=== PATIENT | male | born 1975 | race Caucasian/White ===

== ENCOUNTER 2018-01-17 07:03 | Inpatient (IN) ==
[2018-01-17 07:47] LABS: Baso % (Auto) 0.3 % (0.0-2.0); Eos # (Auto) 0.3 th/mm3 (0.0-0.4); Hematocrit 45.7 % (39.0-51.0); Lymph # (Auto) 5.5 th/mm3 (1.0-4.8); Lymph % (Auto) 56.6 % (9.0-44.0); Mean Corpuscular HGB Conc 35.1 % (32.0-36.0); Mean Corpuscular Volume 91.4 fL (80.0-100.0); Mean Platelet Volume 7.6 fL (7.0-11.0); Mono # (Auto) 0.5 th/mm3 (0.0-0.9); Mono % (Auto) 5.6 % (0.0-8.0); Neut # (Auto) 3.4 th/mm3 (1.8-7.7); Neut % (Auto) 34.5 % (16.0-70.0); Platelet Count 181 th/mm3 (150-450); Red Blood Count 5.01 mil/mm3 (4.50-5.90); Red Cell Distribution Width 14.4 % (11.6-17.2); White Blood Count 9.7 th/mm3 (4.0-11.0)
--- NOTE | 2018-01-17 07:57 | ED ---
HPI General Chief Complaint: Psychiatric Symptoms Stated Complaint: pSYCH SCREEN/[facility] Time Seen by Provider: 01/17/18 07:39 Source: patient Mode of arrival: ambulatory Limitations: no limitations History of Present Illness HPI Narrative: 42-year-old male presents to the emergency department under Giron act. According to the Giron act report the patient was contacted inside his residence after please were contacted in reference to a well-being check on the patient. The patient was persuaded to come to [place] to be evaluated. The patient had made statements to his brother in reference to taking his life after he was abusing alcohol during the night. Patient is currently taking Prozac for depression and mood disorders. A loaded firearm was found in the subject's room and the firearm was taken to the [facility] for safe keeping. On my examination the patient states he does have thoughts of suicide at times. He did have a gun in his house last night and had thoughts of shooting himself in the head. Said he has been struggling from depression for many years and lately his depression has been bad. He is compliant with taking Prozac for his depression. He also admits to drinking alcohol daily for the past 7 days and has episodes of binge drinking for the past 10 years or so. He denies history of suicidal attempts. Denies homicidal ideations. Smokes marijuana occasionally. Otherwise denies other illicit drug use. Denies auditory visual hallucinations. Reports tobacco use. Says he feels short of breath at times and this is been going on for the last 5 years, and says he thinks is because he smokes cigarettes. He denies any associated chest pain. Denies cough, hemoptysis, wheezing. Denies hormone replacement therapy, history of DVT/PE, anticoagulant therapy, leg edema, recent travel or surgery. denies fevers, abdominal pain, vomiting, change in urine or stool. Symptoms aggravated by depression and alcohol intoxication. No known relieving factors. Symptoms are moderate to severe in severity. Is being treated with Prozac. Onset unknown. Duration most likely chronic. Does not have a psychiatrist. Denies other psychiatric history. Has a primary care provider but does not know the name. Allergies to penicillin. Has no other medical complaints. No other modifying factors or associated signs and symptoms. Related Data Previous Rx's Medication Instructions Recorded venlafaxine [Effexor XR] 37.5 mg PO DAILY #30 cap 01/20/18 Allergies Allergy/AdvReac Type Severity Reaction Status Date / Time penicillin G Allergy Rash Verified 01/17/18 07:17 Review of Systems ROS: all other systems reviewed are negative [facility] Medical History Medical History Depression (Acute) Social History Social History Substance History: No History of Abuse Second Hand Smoke Exposure: Yes Smoking Status: Current every day smoker Tobacco Type: Cigarettes How Often Do You Have a Drink Containing Alcohol: 4 or more times a week Recent Travel in [facility] within the Last 8 Weeks: No Recent Out of Country Travel within the Last 8 Weeks: No Immunization History Tetanus Immunization: Unsure Exam Narrative Exam Narrative: GENERAL: Well-nourished, well-developed male patient, in no acute distress SKIN: Warm and dry. HEAD: Atraumatic. Normocephalic. EYES: Pupils equal and round. ENT: Mucosa pink and moist. NECK: Supple. Trachea midline. CARDIOVASCULAR: Regular rate and rhythm. No murmur appreciated. RESPIRATORY: No accessory muscle use. Clear to auscultation. Breath sounds equal bilaterally. GASTROINTESTINAL: Abdomen soft, non-tender, nondistended. Hepatic and splenic margins not palpable. Bowel sounds are active 4 quadrants. MUSCULOSKELETAL: No obvious deformities. No clubbing. No cyanosis. No edema. NEUROLOGICAL: Awake and alert. Oriented 3. No obvious cranial nerve deficits. Motor grossly within normal limits. Normal speech. Moves all extremities. 5/5 strength to all extremities. PSYCHIATRIC: No delusional thought processes. No hallucinations. Course Initial Documented Vital Signs Temperature 98.6 F 01/17/18 07:21 Pulse Rate 89 01/17/18 07:21 Respiratory Rate 16 01/17/18 07:21 Blood Pressure 145/87 H 01/17/18 07:21 Pulse Oximetry 98 01/17/18 07:21 Last Documented Vital Signs Temperature 98.1 F 01/20/18 05:15 Pulse Rate 80 01/20/18 05:15 Respiratory Rate 16 01/20/18 05:15 Blood Pressure 152/88 H 01/20/18 05:15 Pulse Oximetry 97 01/20/18 05:15 Medical Decision Making [facility] Narrative Medical decision making narrative: Patient presents under a Giron act. Physical examination and vital signs are essentially unremarkable. Patient has no medical complaints to report. Psych screen has been ordered. If the laboratory results are unremarkable, the patient will be medically cleared for psychiatric evaluation and disposition. PERC Negative: No need for further workup, as <2% chance of PE. Chest x-ray negative for acute process. I discussed the patient with Dr. Nye and plan of care discussed and he agrees no further workup is necessary and patient can follow-up outpatient in regards to shortness of breath x 5 years. Medical Screen Exam Complete: Yes Emergency Medical Condition: Yes Differential Diagnosis Differential Diagnosis: Suicidal threat, suicidal ideation, alcohol induced mood disorder, depression, medical clearance for psychiatric evaluation Lab Data Result diagrams: 01/17/18 07:23 01/18/18 08:15 Lab Results 01/17/18 01/17/18 01/17/18 Range/Units 07:23 07:23 07:23 WBC 9.7 (4.0-11.0) th/mm3 RBC 5.01 (4.50-5.90) mil/mm3 Hgb 16.0 (13.0-17.0) gm/dL Hct 45.7 (39.0-51.0) % MCV 91.4 (80.0-100.0) fL MCH 32.0 (27.0-34.0) pg MCHC 35.1 (32.0-36.0) % RDW 14.4 (11.6-17.2) % Plt Count 181 (150-450) th/mm3 MPV 7.6 (7.0-11.0) fL Prelim Diff (Auto) Slide review pending Neut % (Auto) 34.5 (16.0-70.0) % Lymph % (Auto) 56.6 H (9.0-44.0) % Coleman % (Auto) 5.6 (0.0-8.0) % Eos % (Auto) 3.0 (0.0-4.0) % Baso % (Auto) 0.3 (0.0-2.0) % Neut # (Auto) 3.4 (1.8-7.7) th/mm3 Lymph # (Auto) 5.5 H (1.0-4.8) th/mm3 Coleman # (Auto) 0.5 (0.0-0.9) th/mm3 Eos # (Auto) 0.3 (0.0-0.4) th/mm3 Baso # (Auto) 0.0 (0.0-0.2) th/mm3 WBC Differential Manual diff final Seg Neuts % (Manual) 26 (16-70) % Band Neuts % (Manual) 1 (0-6) % Lymphocytes % (Manual) 67 H (9-44) % Monocytes % (Manual) 4 (0-8) % Eosinophils % (Manual) 2 (0-4) % Abs Neuts (Manual) 2.6 (1.8-7.7) th/mm3 Differential Comment . Platelet Estimate Normal (Normal) Platelet Morphology Normal (Normal) Sodium 144 (136-145) meq/L Potassium 3.8 (3.5-5.1) meq/L Chloride 108 H (98-107) meq/L Carbon Dioxide 27.8 (21.0-32.0) meq/L Anion Gap 8 (5-15) meq/L BUN 4 L (7-18) mg/dL Creatinine 1.29 (0.60-1.30) mg/dL Estimated GFR 61 L (>89) mL/min Random Glucose 107 H (74-106) mg/dL Hemoglobin A1c (4.3-6.0) % Calcium 7.9 L (8.5-10.1) mg/dL Magnesium 2.0 (1.5-2.5) mg/dL Total Bilirubin 0.4 (0.2-1.0) mg/dL AST 45 H (15-37) U/L ALT 52 (12-78) U/L Alkaline Phosphatase 101 (45-117) U/L Total Protein 7.3 (6.4-8.2) g/dL Albumin 3.6 (3.4-5.0) g/dL Triglycerides (42-150) mg/dL Cholesterol (120-200) mg/dL LDL Cholesterol, Calc (0-99) mg/dL HDL Cholesterol (40.0-60.0) mg/dL Cholesterol/HDL Ratio Ratio TSH 1.330 (0.358-3.740) uIU/mL Salicylates 4.0 (2.8-20.0) mg/dL Urine Opiates Screen (Neg) Acetaminophen Less than 2.0 L (10.0-30.0) mcg/mL Ur Barbiturates Screen (Neg) Ur Amphetamines Screen (Neg) U Benzodiazepines Scrn (Neg) Urine Cocaine Screen (Neg) U Cannabinoids Screen (Neg) Serum Alcohol 249 H (0-5) mg/dL 01/17/18 01/18/18 01/18/18 Range/Units 11:30 08:15 08:15 WBC (4.0-11.0) th/mm3 RBC (4.50-5.90) mil/mm3 Hgb (13.0-17.0) gm/dL Hct (39.0-51.0) % MCV (80.0-100.0) fL MCH (27.0-34.0) pg MCHC (32.0-36.0) % RDW (11.6-17.2) % Plt Count (150-450) th/mm3 MPV (7.0-11.0) fL Prelim Diff (Auto) Neut % (Auto) (16.0-70.0) % Lymph % (Auto) (9.0-44.0) % Coleman % (Auto) (0.0-8.0) % Eos % (Auto) (0.0-4.0) % Baso % (Auto) (0.0-2.0) % Neut # (Auto) (1.8-7.7) th/mm3 Lymph # (Auto) (1.0-4.8) th/mm3 Coleman # (Auto) (0.0-0.9) th/mm3 Eos # (Auto) (0.0-0.4) th/mm3 Baso # (Auto) (0.0-0.2) th/mm3 WBC Differential Seg Neuts % (Manual) (16-70) % Band Neuts % (Manual) (0-6) % Lymphocytes % (Manual) (9-44) % Monocytes % (Manual) (0-8) % Eosinophils % (Manual) (0-4) % Abs Neuts (Manual) (1.8-7.7) th/mm3 Differential Comment Platelet Estimate (Normal) Platelet Morphology (Normal) Sodium 138 (136-145) meq/L Potassium 3.1 L (3.5-5.1) meq/L Chloride 102 (98-107) meq/L Carbon Dioxide 26.5 (21.0-32.0) meq/L Anion Gap 10 (5-15) meq/L BUN 8 (7-18) mg/dL Creatinine 1.27 (0.60-1.30) mg/dL Estimated GFR 62 L (>89) mL/min Random Glucose 100 (74-106) mg/dL Hemoglobin A1c 5.6 (4.3-6.0) % Calcium 8.5 (8.5-10.1) mg/dL Magnesium (1.5-2.5) mg/dL Total Bilirubin (0.2-1.0) mg/dL AST (15-37) U/L ALT (12-78) U/L Alkaline Phosphatase (45-117) U/L Total Protein (6.4-8.2) g/dL Albumin (3.4-5.0) g/dL Triglycerides 327 H (42-150) mg/dL Cholesterol 147 (120-200) mg/dL LDL Cholesterol, Calc 35 (0-99) mg/dL HDL Cholesterol 46.4 (40.0-60.0) mg/dL Cholesterol/HDL Ratio 3.16 Ratio TSH (0.358-3.740) uIU/mL Salicylates (2.8-20.0) mg/dL Urine Opiates Screen Neg (Neg) Acetaminophen (10.0-30.0) mcg/mL Ur Barbiturates Screen Neg (Neg) Ur Amphetamines Screen Neg (Neg) U Benzodiazepines Scrn Neg (Neg) Urine Cocaine Screen Neg (Neg) U Cannabinoids Screen Neg (Neg) Serum Alcohol (0-5) mg/dL Imaging Data Radiologist's impression: Chest X-Ray 01/17/18 08:07 CONCLUSION: Negative for acute process Discharge Plan Discharge Disposition Patient Disposition: 30 Still Patient Discharge Condition Condition: Stable Discharge Order Discharge Orders: Discharge Order (Routine); Ordered 01/20/18 Ordered By: Joni Gustafson Discharge Details Anticipated Discharge Date: 01/20/18 Diagnosis: Encounter for psychiatric assessment Physicians Team ED Provider: Harjit Quinteros ED Midlevel Provider: Renee Pulliam Primary Care Provider: Primary Care Pura Ervin Attending Provider: Joni Gustafson ED Status: Left Department Discharge Information Discharge Date/Time: 01/17/18 16:21
[2018-01-17 08:15] LABS: Albumin 3.6 g/dL (3.4-5.0); Anion Gap 8 meq/L (5-15); Aspartate Aminotransferase 45 U/L (15-37); Blood Urea Nitrogen 4 mg/dL (7-18); Calcium 7.9 mg/dL (8.5-10.1); Carbon Dioxide 27.8 meq/L (21.0-32.0); Chloride 108 meq/L (98-107); Glomerular Filtration Rate 61 mL/min (>89); Glucose,Random 107 mg/dL (74-106); Potassium 3.8 meq/L (3.5-5.1); Sodium 144 meq/L (136-145)
[2018-01-17 08:24] LABS: Alanine Aminotransferase 52 U/L (12-78); Alkaline Phosphatase 101 U/L (45-117); Total Protein 7.3 g/dL (6.4-8.2)
[2018-01-17 08:27] LABS: Alcohol 249 mg/dL (0-5)
--- NOTE | 2018-01-17 08:32 | XR ---
EXAM DATE: 01/17/2018 8:26 AM EDT AGE/SEX: 42 years / Male INDICATIONS: Short of breath, slight chest discomfort, anxiety CLINICAL DATA: This is the patient's initial encounter. Patient reports that signs and symptoms have been present for 1 day and indicates a pain score of Nonresponsive. MEDICAL/SURGICAL HISTORY: None. None. COMPARISON: No prior exams available for comparison. FINDINGS: A single AP view of the chest demonstrates the lungs to be symmetrically aerated without evidence of mass, infiltrate or effusion. The cardiomediastinal contours are unremarkable. Osseous structures a re intact. CONCLUSION: Negative for acute process Electronically signed by: Gabriele Pacheco MD 01/17/2018 8:31 AM EDT
[2018-01-17 08:45] LABS: Eosinophils 2 % (0-4); Lymphocytes 67 % (9-44); Monocytes 4 % (0-8)
[2018-01-17 08:47] LABS: Platelet Estimate Normal (Normal); Platelet Morphology Normal (Normal)
[2018-01-17 12:01] LABS: Amphetamine Screen,Urine Neg (Neg); Barbiturate Screen,Urine Neg (Neg); Cannabinoid Screen,Urine Neg (Neg); Cocaine Screen,Urine Neg (Neg)
[2018-01-17 12:05] LABS: Opiate Screen,Urine Neg (Neg)
[2018-01-17] MEDS ORDERED: Haloperidol Inj 5 MG/ML Ampul IV.PUSH PRN (14:30)
[2018-01-17] MEDS ORDERED: Aluminum/Magnesium/Simethacone Susp 30 ML UDC PO PRN (16:18)
[2018-01-17] MEDS ORDERED: LORazepam 0.5 MG Tablet PO PRN (16:18)
[2018-01-17] MEDS ORDERED: LORazepam 1 MG Tablet PO PRN (16:18)
[2018-01-17] MEDS ORDERED: Acetaminophen 325 MG Tablet PO PRN (16:18)
[2018-01-18] MEDS: LORazepam 1 MG Tablet PO PRN ×2 (00:56→17:42)
[2018-01-18 09:29] LABS: Calcium 8.5 mg/dL (8.5-10.1); Carbon Dioxide 26.5 meq/L (21.0-32.0); Potassium 3.1 meq/L (3.5-5.1)
[2018-01-18 09:33] LABS: Chol/HDL Ratio 3.16 Ratio; HDL Cholesterol 46.4 mg/dL (40.0-60.0)
[2018-01-18 13:21] LABS: Hemoglobin A1c 5.6 % (4.3-6.0)
--- NOTE | 2018-01-18 15:34 | P.HPPSY ---
Provisional Diagnosis Admission Date: January 17, 2018 15:06 Competence Certification of Person's Competence To Provide Express and Informed Consent I have personally examined Reilly Angeles, a person being served at [facility] on, January 18, 2018 1528. Express and informed consent means consent voluntarily given in writing, by a competent person, after sufficient explanation and disclosure of the subject matter involved to enable the person to make a knowing and willful decision without any element of force, fraud, deceit, duress, or other form of constraint or coercion. This person is 18 years of age or older, is not now known to be incompetent to consent to treatment with a guardian advocate, and does not have a health care surrogate or proxy currently making medical treatment decisions. I have found this person to be one of the following: [X] Competent to provide express and informed consent, as defined above, for voluntary admission to this facility and is competent to provide express and informed consent for treatment. He/she has the consistent capacity to make well reasoned, willful, and knowing decisions concerning his or her medical or mental health treatment. The person fully and consistently understands the purpose of the admission for examination/placement and is fully capable of personally exercising all rights assured under [place] Incompetent to provide express and informed consent to voluntary admission, and this is incompetent to provide express and informed consent to treatment. The person must be transferred to involuntary status and a petition for a guardian advocate filed with the Circuit Court. [] Refusing to provide express and informed consent to voluntary admission but is competent to provide express and informed consent for treatment. The person must be discharged or transferred to involuntary status. Form shall be completed within 24 hours of a person's arrival at the receiving facility and filed in the clinical record of each person: 1. Admitted on a voluntary basis 2. Permitted to provide express and informed consent to his/her own treatment 3. Allowed to transfer from involuntary to voluntary status 4. Prior to permitting a person to consent to his or her own treatment after having been previously found incompetent to consent to treatment. History of Present Illness Capacity: Has capacity Chief Complaint: Suicidal thoughts History of Present Illness: Patient is a 42-year-old male with diagnosis of major depressive disorder and alcohol dependence. Due to recent stressors, patient has increased his alcohol usage and is drinking "08/10" he is drinking roughly a bottle of vodka a day. Patient says when he drinks this heavily he gets suicidal ideation. He may passive suicidal statements to his brother who lives in [place]. Patient does have access to a gun. 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 He does not have any family or friends here in [place]. Mood has been depressed and he has been feeling hopeless and helpless. Today, he denies suicidal or homicidal ideation intent or plan. Is having withdrawal symptoms from alcohol and is CIWA is a 9. Vital signs mildly elevated. There are no tremors. He is oriented x4 and not having any visual hallucinations. No nausea or vomiting. Patient is getting treatment from his PCP Prozac 40 mg daily and trazodone. Past psych: Patient began with outpatient psychiatric treatment 8-9 years ago. Denies a history of suicide attempts or inpatient admissions. Past medical: Denies Past Famhx: His brother and niece have depression. Past Social: Long history of alcohol dependence having been to multiple rehabs. He is involved with the AA. Uses cannabis sporadically. No other substances. Patient lost his job recently. He does not have any kids and he is not . Recently moved here from [place] - Inpatient Certification I certify that the inpatient services were ordered in accordance with Medicare regulations governing the order. This includes certification that hospital inpatient services are reasonable and necessary and in the case of services not specified as inpatient-only under 42 CFR 419.22(n), that they are appropriately provided as inpatient services in accordance to with the 2-midnight benchmark under 43 CFR 412.3(e) I certify that inpatient psychiatric hospital services are medically necessary. Evaluation and treatment and/or diagnostic testing are expected to improve the patient's condition. The patient needs on a daily basis, active treatment furnished directly by or requiring the supervision of inpatient psychiatric facility personnel. Estimated Total Length of Stay (Days): 0 Plans for Post Hospital Care: Not yet determined PMFSH - History History Provided By: Patient - Medical History Medical History: Medical History (Last Reviewed 01/18/18 @ 15:32 by Rolo Davila DO) Depression - Surgical History Surgical History: Surgical History (Last Reviewed 01/18/18 @ 15:32 by Rolo Davila DO) H/O left knee surgery - Tobacco History Second Hand Smoke Exposure: Yes Tobacco Use In Past 30 Days: Yes Smoking Status: Current every day smoker Tobacco Type: Cigarettes - Alcohol History How Often Do You Have a Drink Containing Alcohol: 4 or more times a week - Substance Use History Substance History: No History of Abuse - Substance Use Type Alcohol Status: Active Route Used: By Mouth Frequency: Daily - Approx 750ml Vodka Reason for Use: Calm Down - Travel History Recent Travel in the [place] Within the Last 8 Weeks: No Recent Travel Out of the Country Within the Last 8 Weeks: No - Immunization History Tetanus Immunization: Unsure Medications and Allergies Active Medications: Active Medications Acetaminophen (Tylenol) 650 mg PO Q4H PRN PRN Reason: Pain 1-5 or Temp >101F Al Hydrox/Mg Hydrox/Simethicone (Mag-Al Plus Susp Liq) 30 ml PO Q6H PRN PRN Reason: DYSPEPSIA Al Hydroxide/Mg Hydroxide (Milk Of Magnesia Liq) 30 ml PO Q12H PRN PRN Reason: Mild Constipation Flumazenil (Romazecon Inj) 0.2 mg IV.PUSH Q1M PRN PRN Reason: OVERSEDATION Haloperidol Lactate (Haldol Inj) 1 mg IV.PUSH Q15M PRN PRN Reason: for severe agitation Lorazepam (Ativan Inj) 1 mg IV.PUSH Q4H PRN PRN Reason: for CIWA 8-10 Lorazepam (Ativan Inj) 2 mg IV.PUSH Q15M PRN PRN Reason: for CIWA > 20 Lorazepam (Ativan Inj) 2 mg IV.PUSH Q1H PRN PRN Reason: for CIWA 15-20 Lorazepam (Ativan Inj) 2 mg IV.PUSH Q2H PRN PRN Reason: for CIWA 11-14 Lorazepam (Ativan) 1 mg PO Q4H PRN PRN Reason: for CIWA 8-10 Last Admin: 01/18/18 00:56 Dose: 1 mg Lorazepam (Ativan) 2 mg PO Q2H PRN PRN Reason: for CIWA 11-14 Last Admin: 01/18/18 09:02 Dose: 2 mg Lorazepam (Ativan) 1 mg PO Q6H PRN PRN Reason: MODERATE TO SEVERE ANXIETY Lorazepam (Ativan) 0.5 mg PO Q12H PRN PRN Reason: MODERATE TO SEVERE ANXIETY Lorazepam (Ativan Inj) 1 mg IM Q6H PRN PRN Reason: MODERATE TO SEVERE ANXIETY Lorazepam (Ativan Inj) 0.5 mg IM Q12H PRN PRN Reason: MODERATE TO SEVERE ANXIETY Nicotine (Habitrol 21 Mg Patch.24 Hr) 1 patch T-DERMAL DAILY HEATH Last Admin: 01/18/18 09:02 Dose: 1 patch Allergies Allergy/AdvReac Type Severity Reaction Status Date / Time penicillin G Allergy Rash Verified 01/17/18 07:17 Home Medications Medication Instructions Recorded Confirmed Type fluoxetine [Prozac] 40 mg PO QAM 01/17/18 01/17/18 History trazodone 300 mg PO DAILY 01/17/18 01/17/18 History Results - Labs CBC & Chem 7: 01/17/18 07:23 01/18/18 08:15 Labs: Laboratory Results - last 24 hr 01/18/18 01/18/18 08:15 08:15 Sodium 138 Potassium 3.1 L Chloride 102 Carbon Dioxide 26.5 Anion Gap 10 BUN 8 Creatinine 1.27 Estimated GFR 62 L Random Glucose 100 Hemoglobin A1c 5.6 Calcium 8.5 Triglycerides 327 H Cholesterol 147 LDL Cholesterol, Calc 35 HDL Cholesterol 46.4 Cholesterol/HDL Ratio 3.16 Exam Vital signs: Vital Signs 01/17/18 17:41 01/18/18 05:38 Temperature 98.9 F 98.4 F Pulse Rate 84 112 H Respiratory Rate 18 18 Blood Pressure 147/92 H 157/70 H Pulse Oximetry 96 99 Intake & Output 01/17/18 01/18/18 01/18/18 18:59 06:59 18:59 Weight 81.647 kg 81.647 kg Other: Weight On Admission 81.647 kg Mental Status Examination Appearance: Disheveled Consciousness: Alert Orientation: x4 Motor Activity: Normal gait Speech: Unremarkable Language: Adequate Fund of Knowledge: Adequate Attention and Concentration: Adequate Mood: Sad Affect: Blunt Thought Process & Associations: Intact Thought Content: Appropriate Hallucination Type: None Delusion Type: None Suicidal Ideation: No Suicidal Plan: No Suicidal Intention: No Homicidal Ideation: No Homicidal Plan: No Homicidal Intention: No Insight: Poor Judgment: Poor Assessment and Plan - Assessment (1) Major depressive disorder, recurrent severe without psychotic features Code(s): F33.2 - Major depressive disorder, recurrent severe without psychotic features Status: Acute (2) Alcohol dependence Code(s): F10.20 - Alcohol dependence, uncomplicated Status: Acute - Plan Plan: Estimated LOS: [] days Patient asking for switch to another antidepressant. We will hold off 1 more day given he is still withdrawing from alcohol. Continue CIWA as indicated. Patient may sign voluntary Justification for Continued Inpatient Stay: Patient would decompensate in a less restrictive setting
[2018-01-19] MEDS ORDERED: Melatonin 5 MG Tablet PO PRN (09:56)
--- NOTE | 2018-01-19 12:03 | P.PNPSY ---
Subjective Chief Complaint: Suicidal thoughts Remarks: eviewed electronic medical records and discussed case with staff. Follow-up was conducted in the hallway with LISBET Gaspar present. Patient endorses that he has a problem with alcoholism. This provider gave him information on the Medication Assisted Treatment (MAT) program through [facility] and the medication of Vivitrol ( injection ). Patient states that he has been on Prozac and that has helped him. Dr. Davila spoke with patient about starting Effexor and patient is asking to start medication. Review of Systems All other systems reviewed negative except as stated in HPI Mental Status Examination Appearance: Appropriate Consciousness: Alert Orientation: x4 Motor Activity: Normal gait Speech: Unremarkable Language: Adequate Fund of Knowledge: Adequate Attention and Concentration: Adequate Mood: Sad Affect: Blunt Thought Process & Associations: Intact Thought Content: Appropriate Hallucination Type: None Delusion Type: None Suicidal Ideation: No Suicidal Plan: No Suicidal Intention: No Homicidal Ideation: No Homicidal Plan: No Homicidal Intention: No Insight: Poor Judgment: Poor Assessment and Plan - Assessment (1) Major depressive disorder, recurrent severe without psychotic features Code(s): F33.2 - Major depressive disorder, recurrent severe without psychotic features Status: Acute (2) Alcohol dependence Code(s): F10.20 - Alcohol dependence, uncomplicated Status: Acute - Plan Plan: Continue current treatment plan. Start on 37.5 mg of Effexor. Justification for Continued Inpatient Stay: Moving patient to a less restrictive environment may result in his decompensation.
[2018-01-19] MEDS: Venlafaxine XR 37.5 MG Capsule PO SCH (14:29)
[2018-01-20] MEDS: Venlafaxine XR 37.5 MG Capsule PO SCH (08:48)
--- NOTE | 2018-01-20 14:07 | P.DSPSY ---
Psychiatry Discharge Summary Inpatient Psychiatric care?: Yes Advance Directives: No Mental Health Advance Directive: No Health Care Proxy: No - Admission Admission Date: January 17, 2018 15:06 - Admission Diagnosis (1) Alcohol abuse with intoxication Code(s): F10.129 - Alcohol abuse with intoxication, unspecified (2) Major depressive disorder, recurrent severe without psychotic features Code(s): F33.2 - Major depressive disorder, recurrent severe without psychotic features Brief History: Patient is a 42-year-old male with diagnosis of major depressive disorder and alcohol dependence. Due to recent stressors, patient has increased his alcohol usage and is drinking "08/10" he is drinking roughly a bottle of vodka a day. Patient says when he drinks this heavily he gets suicidal ideation. He may passive suicidal statements to his brother who lives in [place]. Patient does have access to a gun. 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 He does not have any family or friends here in [place]. Mood has been depressed and he has been feeling hopeless and helpless. Today, he denies suicidal or homicidal ideation intent or plan. Is having withdrawal symptoms from alcohol and is CIWA is a 9. Vital signs mildly elevated. There are no tremors. He is oriented x4 and not having any visual hallucinations. No nausea or vomiting. Patient is getting treatment from his PCP Prozac 40 mg daily and trazodone. Past psych: Patient began with outpatient psychiatric treatment 8-9 years ago. Denies a history of suicide attempts or inpatient admissions. Past medical: Denies Past Famhx: His brother and niece have depression. Past Social: Long history of alcohol dependence having been to multiple rehabs. He is involved with the AA. Uses cannabis sporadically. No other substances. Patient lost his job recently. He does not have any kids and he is not . Recently moved here from [place] Tobacco Use In Past 30 Days: Yes How Often Do You Have a Drink Containing Alcohol: 4 or more times a week Hospital Course: Patient's hospital course was uneventful. Patient seen by me with nurse Carolyn, he is alert oriented calm cooperative white male. Acknowledging of the stresses he has had with his finances fact they may have to sell his house. Though he denies suicidality homicidality voice or visions. States he would not take the suicide pill if offered. He does acknowledge chronic alcohol misuse stating he has been in a detox program at least 3-4 times this past year that he is somewhat of an episodic drinker. He also acknowledges multiple year history of intermittent depressive episodes. However he is showing some insight into his issues related to both relationships work financial and the role that alcohol plays in his life. He has had no bad effects from the initiation of the Effexor. Thus at this time feel patient has ability [facility] Rx times 1 month, follow-up [facility] substance abuse treatment and mental health treatment will be given 1 month supply of his Effexor - Discharge Discharge Date: 01/20/18 - Discharge Diagnosis (1) Major depressive disorder, recurrent severe without psychotic features Code(s): F33.2 - Major depressive disorder, recurrent severe without psychotic features Status: Acute (2) Alcohol abuse with intoxication Code(s): F10.129 - Alcohol abuse with intoxication, unspecified Status: Acute Discharge Disposition: Home - Discharge Instructions Discharge Diet: Regular Diet Activities You Can Perform: Regular- No Restrictions - Discharge Time > 30 minutes Mental Status Examination Appearance: Appropriate Consciousness: Alert Orientation: x4 Motor Activity: Normal gait Speech: Unremarkable Language: Adequate Fund of Knowledge: Adequate Attention and Concentration: Adequate Mood: Sad Affect: Blunt Thought Process & Associations: Intact Thought Content: Appropriate Hallucination Type: None Delusion Type: None Suicidal Ideation: No Suicidal Plan: No Suicidal Intention: No Homicidal Ideation: No Homicidal Plan: No Homicidal Intention: No Insight: Poor Judgment: Poor Discharge/Advance Care Plan - Results Vital Signs: Last Vital Signs Temp 98.1 F 01/20/18 05:15 Pulse 80 01/20/18 05:15 Resp 16 01/20/18 05:15 BP 152/88 H 01/20/18 05:15 Pulse Ox 97 01/20/18 05:15 Lab Results: Laboratory Results Hemoglobin A1c 5.6 % (4.3-6.0) 01/18/18 08:15 Triglycerides 327 mg/dL (42-150) H 01/18/18 08:15 Cholesterol 147 mg/dL (120-200) 01/18/18 08:15 LDL Cholesterol, Calc 35 mg/dL (0-99) 01/18/18 08:15 HDL Cholesterol 46.4 mg/dL (40.0-60.0) 01/18/18 08:15 TSH 1.330 uIU/mL (0.358-3.740) 01/17/18 07:23 Summary of Procedures: None done Imaging: ITS Impressions Chest X-Ray 01/17/18 08:07 CONCLUSION: Negative for acute process Pending Results: None - Medications Number of antipsychotic medications at discharge: 0 - Discharge Care Plan Goals to Promote Your Health: * To prevent worsening of your condition and complications * To maintain your health at the optimal level Directions to Meet Your Goals: Take your medications as prescribed Follow your dietary instruction Follow activity as directed Keep your appointments as scheduled Take your immunizations and boosters as scheduled If your symptoms worsen call your PCP, if no PCP go to Urgent Care Center or Emergency Room For 08/10 questions related to your inpatient stay or results of tests pending at discharge, please contact Dr. Joni Gustafson MD at Smoking is Dangerous to Your Health. Avoid second hand smoking
== END 2018-01-20 17:30 | disposition home or self-care (01) ==
LOC: NEPD 07:03 → NEDA 15:06 → H260 16:00
PROVIDERS: ADMIT Psychiatry & Neurology Psychiatry; ATTEND Psychiatry & Neurology Psychiatry